=== PATIENT | male | born 1970 | race African-American/Black ===

== ENCOUNTER 2020-05-02 20:40 | Emergency (ER) | payer SELFPAY ==
[2020-05-02] MEDS ORDERED: SODIUM BICARBONATE 50 MEQ/50 ML ABBOJECT IV ONE (20:41)
[2020-05-02] MEDS ORDERED: NARCAN 2 MG/2 ML IV ONE (20:41)
[2020-05-02] MEDS ORDERED: EPINEPHRINE ABBOJECT 1 MG IV ONE (20:41)
[2020-05-02] MEDS ORDERED: Sodium Chloride 0.9% 1000 ML 1,000 ML ONE (20:48)
[2020-05-02 21:11] LABS: Hematocrit 48.5 % (42-50); Hemoglobin 14.8 gm/dl (12.5-18.0); Mean Cell Volume 105.9 fl (78-100); Mean Corpuscular Hemoglobin 32.3 pg (26-32); Mean Corpuscular Hgb Concent. 30.5 g/dl (32-36); Mean Platelet Volume 10.7 fl (7.5-11.0); Platelet Count 219 K/mm3 (150-450); Red Blood Count 4.58 M/mm3 (4.1-5.6); Red Cell Distribution Width 15.5 % (11.5-14.0); White Blood Count 12.2 K/mm3 (4.0-10.5)
[2020-05-02 21:18] LABS: ALBUMIN 4.9 g/dL (3.5-5.0); ANION GAP 33.1 MEQ/L (5-15); BILIRUBIN,TOTAL 0.5 mg/dL (0.2-1.3); Calcium 10.8 mg/dL (8.4-10.2); Creatinine 1 1.64 mg/dL (0.66-1.25); Total Protein 7.5 g/dL (6.3-8.2)
[2020-05-02 21:27] LABS: MAGNESIUM 3.3 mg/dL (1.6-2.3)
--- NOTE | 2020-05-02 21:34 | ERPHSYRPT ---
- History of Present Illness Time Seen by Provider: 05/02/20 20:40 Source: EMS, police Exam Limitations: clinical condition Physician History: This is a 49-year-old male who arrived via EMS and full code arrest. Patient actually arrived at 2027 pM. There is no palpable pulse, no spontaneous breath sounds, no spontaneous heart sounds, bilateral pupils were dilated and nonreactive. CPR is in progress. The patient was in [facility] when the patient's girlfriend of 5 years said to the police in [place] when they were pulled over that this patient was sick and was vomiting and did not communicate and was sitting upside down in the back seat. He was transported by his girlfriend and heading towards [facility] where they live. Police noticed the patient upside down and pulled the car over and found this patient ill not breathing on his own not communicating. EMS was immediately contacted and they arrived at the scene and patient was in full code arrest. Patient arrives to our emergency department with CPR in progress at 2027 PM. Timing/Duration: today Severity: severe Associated Symptoms: other (Patient arrives unresponsive and code arrest) Travel Risk - International Travel Have you traveled outside of the country in past 3 weeks: No - Coronavirus Screening Are you exhibiting any of the following symptoms?: No Close contact with a COVID-19 positive Pt in past 14-21 Days: No - Review of Systems Constitutional: No Symptoms Eyes: No Symptoms Ears, Nose, & Throat: No Symptoms Respiratory: No Symptoms, Dyspnea (Per patient's girlfriend information obtained later.) Cardiac: Chest Pain (Patient's girlfriend stated that the patient has been having chest pain for several weeks prior to this) Abdominal/Gastrointestinal: No Symptoms Genitourinary Symptoms: No Symptoms Musculoskeletal: No Symptoms Skin: No Symptoms Neurological: No Symptoms Psychological: No Symptoms Endocrine: No Symptoms Hematologic/Lymphatic: No Symptoms Immunological/Allergic: No Symptoms All Other Systems: Reviewed and Negative - Past Medical History Pertinent Past Medical History: No Neurological History: No Pertinent History ENT History: No Pertinent History Cardiac History: No Pertinent History Respiratory History: No Pertinent History Endocrine Medical History: No Pertinent History Musculoskeletal History: No Pertinent History GI Medical History: No Pertinent History History: No Pertinent History Psycho-Social History: No Pertinent History Male Reproductive Disorders: No Pertinent History - Past Surgical History Past Surgical History: No Neuro Surgical History: No Pertinent History Cardiac: No Pertinent History Respiratory: No Pertinent History Gastrointestinal: No Pertinent History Genitourinary: No Pertinent History Musculoskeletal: No Pertinent History Male Surgical History: No Pertinent History - Social History Smoking Status: Current every day smoker Drug Use: heroin (Her patient's girlfriend) Significant Family History: no pertinent family hx - Physical Exam General Appearance: other (Unresponsive and code arrest) Eye Exam: other (Pupils dilated and nonreactive) Ears, Nose, Throat Exam: dry mucous membranes Respiratory Exam: other Cardiovascular Exam: other (No spontaneous breath sounds no spontaneous heart tones and no palpable peripheral pulses) Neurologic Exam: other (Patient in code arrest unresponsive) Skin Exam: pale Lymphatic Exam: No adenopathy O2 Delivery: Ambu-Bag Procedures - Intubation Intubation Indications: cardiac arrest, respiratory arrest Intubation Method: orotracheal Tube Size (cm): Patient unresponsive Endotracheal Tube Confirmation: bilateral breath sounds, positive end tidal CO2, good rise & fall of chest Intubation Complications: no complications Performed By: Respiratory Therapy Post Intubation Xray: Yes Progress/X-ray Impression: 05/02/20 21:38 Endotracheal tube on the chest x-ray was in the trachea. The ET tube can be advanced 1 to 2 cm. - Course Nursing assessment & vital signs reviewed: Yes Ordered Tests: Active Orders 24 hr Category Date Time Status Catheter-[place] [facility] STAT Care 05/02/20 20:58 Active CHEST 1 VIEW (PORTABLE) Stat Exams 05/02/20 21:00 Ordered CBC W DIFF Stat Lab 05/02/20 21:07 Completed CMP Stat Lab 05/02/20 21:07 Received ETHYL ALCOHOL Stat Lab 05/02/20 21:07 Completed MAG [MAGNESIUM] Stat Lab 05/02/20 21:07 Completed Manual Differential NC Stat Lab 05/02/20 21:07 Completed Urine Triage Profile Stat Lab 05/02/20 21:23 Received Medication Summary Discontinued Medications Generic Name Dose Route Start Last Admin Trade Name Freq PRN Reason Stop Dose Admin Sodium Chloride Confirm 05/02/20 20:48 Sodium Chloride 0.9% 1000 Ml Administered 05/02/20 20:49 Dose 1,000 mls @ ud .ROUTE .K-MED ONE Lab/Rad Data: Laboratory Result Diagrams 05/02/20 21:07 Laboratory Results 05/02/20 05/02/20 Range/Units 21:07 21:07 WBC 12.2 H (4.0-10.5) K/mm3 RBC 4.58 (4.1-5.6) M/mm3 Hgb 14.8 (12.5-18.0) gm/dl Hct 48.5 (42-50) % MCV 105.9 H (78-100) fl MCH 32.3 H (26-32) pg MCHC 30.5 L (32-36) g/dl RDW 15.5 H (11.5-14.0) % Plt Count 219 (150-450) K/mm3 MPV 10.7 (7.5-11.0) fl Magnesium 3.3 H (1.6-2.3) mg/dL Ethyl Alcohol 12 H (0-10) mg/dL - Departure Departure Disposition: Clinical Impression: Cardiac arrest, Respiratory arrest before cardiac arrest Condition: Critical Care Time: Yes Critical Care Time(excluding separately billable procedures): Critical 30-74 min s Referrals: DOCTOR,NO FAMILY [Primary Care Provider] -
[2020-05-02 21:40] LABS: Potassium 7.3 mmol/L (3.5-5.1)
[2020-05-02 21:41] LABS: Amphetamine,Urine NEGATIVE (NEGATIVE); Barbiturate,Urine NEGATIVE (NEGATIVE); Benzodiazepine,Urine NEGATIVE (NEGATIVE); Cocaine,Urine NEGATIVE (NEGATIVE); Methadone,Urine NEGATIVE (NEGATIVE); Opiate,Urine NEGATIVE (NEGATIVE); PCP,Urine NEGATIVE (NEGATIVE); THC,Urine POSITIVE (NEGATIVE)
[2020-05-02 23:08] LABS: ATYPICAL LYMPHS 1 %; BAND 4 % (0.0-2.0); Eosinophil 1 % (0.00-3.0); Lymphocytes 76 % (24-44); Monocyte 3 % (0.0-12.0); Neutrophils 15 % (36.-66.); Platelet Estimate NORMAL (NORMAL); Total Cells Counted 100
[2020-05-03] MEDS ORDERED: Sodium Chloride 0.9% 500 ML 500 ML IV ONE (02:45)
--- NOTE | 2020-05-03 08:46 | XRAY ---
Indication: Cardiac arrest. Comparison: None Portable chest demonstrates normal heart, lungs, and bony thorax with incidental left apical calcified granuloma, endotracheal tube tip 7 cm above rylee, NG tube tip presumed in the stomach, and multiple overlying monitoring leads.
== END 2020-05-02 21:06 | disposition expired ==
LOC: ED 20:40
DX: R09.2 Respiratory arrest (principal); I46.9 Cardiac arrest, cause unspecified; Z72.0 Tobacco use
CPT/HCPCS: 31500; 36415; 71045; 80053; 80307; 83735; 85025; 94799; 99283; 99291; J0171; J2310; G0480